=== PATIENT | female | born 1990 ===

== ENCOUNTER 2019-04-01 16:28 | Emergency (ER) | payer BC ==
[2019-04-01 17:13] VITALS: BP 127/86; PULSE 72; RESP 18; TEMP 98
--- NOTE | 2019-04-01 18:00 | ED ---
General Adult HPI - General Chief complaint: Extremity Injury, Upper Stated complaint: Slammed finger in door Time Seen by Provider: 04/01/19 17:39 Source: patient Mode of arrival: ambulatory Limitations: no limitations - History of Present Illness Initial comments: Patient is a 28-year-old female presenting to the emergency Department with complaints of pain in her left thumb. Patient states she accidentally shot her thumb in a car door today. Patient is able to move her thumb but has pain in the distal aspect. Patient states there is also a small amount of blood coming from her nail. Patient denies any other injuries at this time. Patient denies any previous injuries of her left hand or thumb. Bleeding is controlled at this time. Patient denies fever, chills. Upon arrival to ER vital signs are stable, afebrile. - Related Data Allergies Allergy/AdvReac Type Severity Reaction Status Date / Time eggplant Allergy Unknown Uncoded 04/01/19 17:13 Review of Systems ROS Statement: Those systems with pertinent positive or pertinent negative responses have been documented in the HPI. ROS Other: All systems not noted in ROS Statement are negative. Past Medical History Past Medical History: No Reported History History of Any Multi-Drug Resistant Organisms: None Reported Past Surgical History: No Surgical Hx Reported Past Psychological History: No Psychological Hx Reported Smoking Status: Never smoker Past Alcohol Use History: Occasional Past Drug Use History: None Reported General Exam - General Exam Comments Initial Comments: GENERAL: Well-appearing, well-nourished and in no acute distress. HEAD: Atraumatic, normocephalic. EYES: Pupils equal round and reactive to light, extraocular movements intact, sclera anicteric, conjunctiva are normal. ENT: TMs normal, nares patent, oropharynx clear without exudates. Moist mucous membranes. NECK: Normal range of motion, supple without lymphadenopathy or JVD. LUNGS: Breath sounds clear to auscultation bilaterally and equal. No wheezes rales or rhonchi. HEART: Regular rate and rhythm without murmurs, rubs or gallops. ABDOMEN: Soft, nontender, normoactive bowel sounds. No guarding, no rebound. No masses appreciated. : Deferred EXTREMITIES: Pain with palpation of the left distal thumb. There is some bruising present along the nail bed. Patient does have gel eritrean onto her nails. There is a small crack in her nail with blood oozing from the crack. Normal range of motion of the left thumb and left hand. no pitting or edema. No clubbing or cyanosis. Neurovascular intact. NEUROLOGICAL: Cranial nerves II through XII grossly intact. Normal speech, normal gait. PSYCH: Normal mood, normal affect. SKIN: Warm, Dry, normal turgor, no rashes or lesions noted. Limitations: no limitations Course Vital Signs 04/01/19 17:11 Temperature 98.0 F Pulse Rate 72 Respiratory 18 Rate Blood Pressure 127/86 O2 Sat by Pulse 98 Oximetry Medical Decision Making - Medical Decision Making Patient is a 28-year-old female presenting with left thumb pain after smashing her thumb in a car door prior to arrival. On exam patient has pain with palpation of the distal left thumb. Patient also has a subungual hematoma of the left thumbnail. Patient also has a crack in her thumb now that is oozing blood. X-rays of the left hand showed no acute fractures. It was discussed with patient that blood will continue to ooze from the crack in her nail. Patient is stable for discharge at this time. Patient will follow-up with PCP as needed. Case discussed with Dr. Arboleda. Disposition Clinical Impression: Contusion of left thumb with damage to nail Disposition: HOME SELF-CARE Condition: Stable Instructions (If sedation given, give patient instructions): Subungual Hematoma (ED) Additional Instructions: Please return to the Emergency Department if symptoms worsen or any other concerns. Is patient prescribed a controlled substance at d/c from ED?: No Referrals: Nonstaff,Physician [Primary Care Provider] - 1-2 days
--- NOTE | 2019-04-01 18:29 | XR ---
EXAMINATION TYPE: XR hand complete LT DATE OF EXAM: 04/01/2019 COMPARISON: NONE HISTORY: Thumb trauma. Pain. TECHNIQUE: 3 views FINDINGS: Metacarpals appear intact. I see no fracture nor dislocation. The thumb appears intact. The re are no erosions. IMPRESSION: Negative left hand exam.
== END 2019-04-01 19:18 | disposition home or self-care (01) ==
LOC: EC 16:28
DX: S60.112A Contusion of left thumb with damage to nail, initial encounter (principal); Z91.018 Allergy to other foods; W23.0XXA Caught, crushed, jammed, or pinched between moving objects, initial encounter
CPT/HCPCS: 99283